=== PATIENT | female | born 1995 | race Two or more races ===

== ENCOUNTER 2020-11-25 11:53 | Emergency (ER) | payer SELFPAY ==
[~2020-11-25] VITALS: Ht 157.5 cm; Wt 49.9 kg
[2020-11-25 11:56] VITALS: BP 118/76
[2020-11-25 14:01] LABS: Urine Bacteria FEW /hpf (None Seen); Urine Blood 3+ /uL (Negative); Urine Budding Yeast FEW /hpf (None Seen); Urine Specific Gravity 1.014 (1.001-1.035); Urine WBC 99 /hpf (0 - 5); Urine WBC Clumps PRESENT /hpf (None Seen)
== END 2020-11-25 13:49 | disposition left against medical advice (07) ==
LOC: ER 11:53
DX: R10.9 Unspecified abdominal pain (principal); R30.0 Dysuria; Z53.21 Procedure and treatment not carried out due to patient leaving prior to being seen by health care provider
CPT/HCPCS: 81001; 81025